=== PATIENT | male | born 1980 | race Caucasian/White ===

== ENCOUNTER 2019-01-27 23:16 | Emergency (ER) | payer BC ==
[2019-01-27] MEDS ORDERED: LIDOCAINE 2% MPF 5 ML VIAL ONE (23:47)
--- NOTE | 2019-01-28 00:28 | EDPHYS ---
Physician Documentation [facility] Name: Hugo Tucker Age: 38 yrs Sex: Male : 1980 Arrival Date: 01/27/2019 Time: 23:21 Bed 30 Private MD: Joseph Crawford ED Physician Wander Mims HPI: 01/27 23:34 This 38 yrs old Male presents to ER via Ambulatory with complaints of Toe michelle Injury. 23:34 The patient presents with decreased range of motion, pain, that is acute. The michelle complaints affect the right foot, right foot. Context: resulted from the patient kicking, furniture. Onset: The symptoms/episode began/occurred just prior to arrival. Modifying factors: The symptoms are alleviated by elevation of extremity, the symptoms are aggravated by movement. Associated signs and symptoms: The patient has no apparent associated signs or symptoms. Severity of symptoms: At their worst the symptoms were mild, moderate, in the emergency department the symptoms are unchanged. The patient has not experienced similar symptoms in the past. Historical: - Allergies: 23:26 No Known Allergies; bb - Home Meds: 23:26 Unable to obtain [Active]; bb - PMHx: 23:26 Hypertension; bb - PSHx: 23:26 None; bb - Immunization history:: Adult Immunizations up to date. - Social history:: Smoking status: Patient/guardian denies using tobacco. - Ebola Screening: : No symptoms or risks identified at this time. - Family history:: not pertinent. ROS: 23:34 Constitutional: Negative for fever, chills, and weight loss, Eyes: Negative for injury, michelle pain, redness, and discharge, ENT: Negative for injury, pain, and discharge, Neck: Negative for injury, pain, and swelling, Cardiovascular: Negative for chest pain, palpitations, and edema, Respiratory: Negative for shortness of breath, cough, wheezing, and pleuritic chest pain, Abdomen/GI: Negative for abdominal pain, nausea, vomiting, diarrhea, and constipation, Back: Negative for injury and pain, : Negative for injury, bleeding, discharge, and swelling, Skin: Negative for injury, rash, and discoloration, Neuro: Negative for headache, weakness, numbness, tingling, and seizure, Psych: Negative for depression, anxiety, suicide ideation, homicidal ideation, and hallucinations, Allergy/Immunology: Negative for hives, rash, and allergies, Endocrine: Negative for neck swelling, polydipsia, polyuria, polyphagia, and marked weight changes, Hematologic/Lymphatic: Negative for swollen nodes, abnormal bleeding, and unusual bruising. 23:34 MS/extremity: Positive for injury or acute deformity, contusion, deformity, pain, swelling, tenderness, of the right foot. Exam: 23:34 Constitutional: This is a well developed, well nourished patient who is awake, alert, michelle and in no acute distress. Head/Face: Normocephalic, atraumatic. Eyes: Pupils equal round and reactive to light, extra-ocular motions intact. Lids and lashes normal. Conjunctiva and sclera are non-icteric and not injected. Cornea within normal limits. Periorbital areas with no swelling, redness, or edema. ENT: Nares patent. No nasal discharge, no septal abnormalities noted. Tympanic membranes are normal and external auditory canals are clear. Oropharynx with no redness, swelling, or masses, exudates, or evidence of obstruction, uvula midline. Mucous membranes moist. Neck: Trachea midline, no thyromegaly or masses palpated, and no cervical lymphadenopathy. Supple, full range of motion without nuchal rigidity, or vertebral point tenderness. No Meningismus. Chest/axilla: Normal chest wall appearance and motion. Nontender with no deformity. No lesions are appreciated. Cardiovascular: Regular rate and rhythm with a normal S1 and S2. No gallops, murmurs, or rubs. Normal PMI, no JVD. No pulse deficits. Respiratory: Lungs have equal breath sounds bilaterally, clear to auscultation and percussion. No rales, rhonchi or wheezes noted. No increased work of breathing, no retractions or nasal flaring. Abdomen/GI: Soft, non-tender, with normal bowel sounds. No distension or tympany. No guarding or rebound. No evidence of tenderness throughout. Back: No spinal tenderness. No costovertebral tenderness. Full range of motion. Male : Normal genitalia with no discharge or lesions. Skin: Warm, dry with normal turgor. Normal color with no rashes, no lesions, and no evidence of cellulitis. Neuro: Awake and alert, GCS 15, oriented to person, place, time, and situation. Cranial nerves II-XII grossly intact. Motor strength 5/5 in all extremities. Sensory grossly intact. Cerebellar exam normal. Normal gait. Psych: Awake, alert, with orientation to person, place and time. Behavior, mood, and affect are within normal limits. 23:34 Musculoskeletal/extremity: ROM: limited active range of motion, limited passive range of motion, Circulation is intact in all extremities. the right fifth toe Sensation intact. Compartment Syndrome exam of affected extremity: is normal. no numbness, no tingling, no sensation deficit, no palor, no weak pulses, severe pain, DVT Exam: no pain, no swelling, no tenderness, negative Homans' sign noted on exam, no appreciated bluish discoloration, no erythema, no increased warmth. Vital Signs: 23:26 BP 128 / 80; Pulse 80; Resp 16 S; Temp 97.6(O); Pulse Ox 96% on R/A; Weight 92.99 kg bb (R); Height 6 ft. 0 in. (182.88 cm) (R); Pain 3/10; 23:26 Body Mass Index 27.80 (92.99 kg, 182.88 cm) Procedures: 01/28 00:26 Reduction: of the right ankle, using manipulation, Immobilized with post op shoe. [facility] Patient tolerated well. Post reduction film - reveals normal alignment. MDM: 01/27 23:31 Patient medically screened. [facility] 23:39 Data reviewed: vital signs, nurses notes, lab test result(s), EKG, radiologic studies. [facility] 01/27 23:28 Order name: XRAY Foot RIGHT 3 View 01/27 23:34 Order name: Dressing - Wound; Complete Time: 23:[address] [facility] 01/27 23:34 Order name: Gloves, Sterile; Complete Time: 23:[address] [facility] 01/27 23:34 Order name: Setup Suture Tray; Complete Time: 23:[address] [facility] 01/27 23:34 Order name: Post-op shoe; Complete Time: 23:[address] [facility] Administered Medications: No medications were administered Disposition: 01/28/19 00:28 Discharged to Home. Impression: Displaced unspecified fracture of right great toe - 5th proximal phalynx. - Condition is Stable. - Discharge Instructions: Toe Fracture, Toe Fracture, [id number]. - Prescriptions for Tylenol- Codeine #3 300-30 mg Oral Tablet - take 2 tablets by ORAL route every 6 hours As needed; 26 tablet. - Medication Reconciliation Form, Thank You Letter, Antibiotic Education, Prescription Opioid Use form. - Follow up: Joseph Crawford MD; When: 2 - 3 days; Reason: Recheck today's complaints, Continuance of care, Re-evaluation by your physician. Follow up: Rufino Carpio DPM; When: 2 - 3 days; Reason: Recheck today's complaints, Continuance of care, Re-evaluation by your physician. - Problem is new. - Symptoms have improved. Signatures: Dispatcher [employer] EDMS Wander Mims MD MD cha Ballard, Brenda, RN RN bb Jeff Portillo RN RN rv Corrections: (The following items were deleted from the chart) 01/28 00:53 00:28 01/28/2019 00:28 Discharged to Home. Impression: Displaced unspecified fracture rv of right great toe - 5th proximal phalynx. Condition is Stable. Forms are Medication Reconciliation Form, Thank You Letter, Antibiotic Education, Prescription Opioid Use. Follow up: Joseph Crawford; When: 2 - 3 days; Reason: Recheck today's complaints, Continuance of care, Re-evaluation by your physician. Follow up: Dr. Rufino Carpio; When: 2 - 3 days; Reason: Recheck today's complaints, Continuance of care, Re-evaluation by your physician. Problem is new. Symptoms have improved. michelle
--- NOTE | 2019-01-28 00:28 | ER ---
Nurse's Notes [facility] Name: Hugo Tucker Age: 38 yrs Sex: Male : 1980 Arrival Date: 01/27/2019 Time: 23:21 Bed 30 Private MD: Joseph Crawford Diagnosis: Displaced unspecified fracture of right great toe-5th proximal phalynx Presentation: 01/27 23:25 Presenting complaint: Patient states: he hit his right pinky toe on a door casing bb approx 30 mins ago toe is numb. Transition of care: patient was not received from another setting of care. Onset of symptoms was January 27, 2019. Risk Assessment: Do you want to hurt yourself or someone else? Patient reports no desire to harm self or others. Initial Sepsis Screen: Does the patient meet any 2 criteria? No. Patient's initial sepsis screen is negative. Does the patient have a suspected source of infection? No. Patient's initial sepsis screen is negative. Care prior to arrival: None. 23:25 Method Of Arrival: Ambulatory bb 23:25 Acuity: PHYLICIA 4 bb Historical: - Allergies: 23:26 No Known Allergies; bb - Home Meds: 23:26 Unable to obtain [Active]; bb - PMHx: 23:26 Hypertension; bb - PSHx: 23:26 None; bb - Immunization history:: Adult Immunizations up to date. - Social history:: Smoking status: Patient/guardian denies using tobacco. - Ebola Screening: : No symptoms or risks identified at this time. - Family history:: not pertinent. Screenin/05 00:09 Abuse screen: Denies threats or abuse. Nutritional screening: No deficits noted. tl3 Tuberculosis screening: No symptoms or risk factors identified. Fall Risk None identified. Assessment: 00:09 General: Appears in no apparent distress. uncomfortable, slender, well groomed, well tl3 developed, well nourished, Behavior is calm, cooperative, appropriate for age. Pain: Complains of pain in right fifth toe. Neuro: Level of Consciousness is awake, alert, obeys commands, Oriented to person, place, time, situation, Appropriate for age. Cardiovascular: Capillary refill < 3 seconds in right toes Patient's skin is warm and dry. Respiratory: Airway is patent Respiratory effort is even, unlabored, Respiratory pattern is regular, symmetrical. GI: No signs and/or symptoms were reported involving the gastrointestinal system. : No signs and/or symptoms were reported regarding the genitourinary system. EENT: No signs and/or symptoms were reported regarding the EENT system. Derm: No signs and/or symptoms reported regarding the dermatologic system. Musculoskeletal: right 5th toe poking out to the right. Injury Description: ran into a door jamb. Vital Signs: 01/27 23:26 BP 128 / 80; Pulse 80; Resp 16 S; Temp 97.6(O); Pulse Ox 96% on R/A; Weight 92.99 kg bb (R); Height 6 ft. 0 in. (182.88 cm) (R); Pain 3/10; 23:26 Body Mass Index 27.80 (92.99 kg, 182.88 cm) bb ED Course: 23:21 Patient arrived in ED. es 23:21 Joseph Crawford MD is Private Physician. es 23:26 Triage completed. bb 23:26 Arm band placed on Patient placed in an exam room, on a stretcher, on pulse oximetry. bb X-ray ordered. Family accompanied patient. 23:31 Wander Mims MD is Attending Physician. [facility] 23:57 X-ray completed. Portable x-ray completed in exam room. Patient tolerated procedure kw well. 23:57 XRAY Foot RIGHT 3 View In Process Unspecified. EDMS 23:58 Raya Valerio, GONZÁLEZ is Primary Nurse. tl3 01/28 00:09 Patient has correct armband on for positive identification. Bed in low position. Call tl3 light in reach. Adult w/ patient. 00:09 No provider procedures requiring assistance completed. Patient did not have IV access tl3 during this emergency room visit. 00:27 Joseph Crawford MD is Referral Physician. [facility] 00:27 Rufino Caripo DPM is Referral Physician. [facility] Administered Medications: No medications were administered Outcome: 00:28 Discharge ordered by . michelle 00:52 Discharged to home ambulatory. rv 00:52 Condition: good 00:52 Discharge instructions given to patient, Instructed on discharge instructions, follow up and referral plans. medication usage, Demonstrated understanding of instructions, follow-up care, medications, Prescriptions given X 1. 00:53 Patient left the ED. rv Signatures: Dispatcher [employer] EDMS Wander Mims, MD MD michelle Cleveland, Juliana es Flynn, [place], RN RN bb Ora Serna Tammy RN RN tl3 Jeff Portillo RN RN rv
--- NOTE | 2019-01-28 08:16 | RAD REPORT ---
EXAM DESCRIPTION: RAD - Foot Right 3 View - 01/28/2019 12:00 am CLINICAL HISTORY: Right foot pain status post injury FINDINGS: An oblique mildly to moderately displaced fracture involves the mid aspect of the fifth pr oximal phalanx. Angulation is present at the fracture site. No dislocation seen
== END 2019-01-28 00:53 | disposition home or self-care (01) ==
LOC: ER 23:16
DX: S92.411A Displaced fracture of proximal phalanx of right great toe, initial encounter for closed fracture (principal); W22.03XA Walked into furniture, initial encounter; I10 Essential (primary) hypertension
CPT/HCPCS: 99283